=== PATIENT | female | born 1975 | race Caucasian/White ===

== ENCOUNTER → 2016-09-27 | Outpatient (CLI) | payer MEDICAID ==
[~2016-09-27] MED LIST: ALBUAER3 INH; CLIN1CAP5 PO; DICL75TA PO; GABA100C4 PO; HYDR12.56 PO; HYDR25TA35 PO; LURA80 PO; MECL-62 PO; MOTR200T4 PO; OMEP20TA PO; ROBA500T PO; SERT-129 PO; TRAZ50TA12 PO; WALKER WHEELS/F1 MIS; ZOFR4TAB PO
--- NOTE | 2016-09-27 10:59 | EKG ---
Date Performed: 09/27/2016 Time Performed: 10:26:18 PTAGE: 41 years EKG: Sinus rhythm NORMAL ECG PREVIOUS TRACING : 05/05/2011 19.59 No significant change from previous tracing noted. DOCTOR: Elmer Singh Interpretating Date/Time 09/27/2016 10:59:26
== END ==
LOC: HCAV 10:11
DX: F33.3 Major depressive disorder, recurrent, severe with psychotic symptoms (principal)
CPT/HCPCS: 93005

== ENCOUNTER 2016-12-31 21:13 | Inpatient (IN) | payer MEDICAID, OTHER ==
[~2016-12-31] VITALS: Ht 160 cm; Wt 73.0 kg
[~2016-12-31 21:13] MED LIST changes: -CLIN1CAP5 PO; -DICL75TA PO; -LURA80 PO; -MOTR200T4 PO; -OMEP20TA PO; -ROBA500T PO
[2016-12-31 21:16] VITALS: BP 135/81; PULSE 126; RESP 15; TEMP 100.2; O2SAT 97
[2016-12-31 22:19] VITALS: BP 116/74; PULSE 121; RESP 22; TEMP 100; O2SAT 96
[2016-12-31] MEDS ORDERED: SODIUM CHLOR 0.9% 1000 ML INJ 1,000 ML IV SCH (22:21)
[2016-12-31] MEDS ORDERED: PIPERACIL-TAZO 4.5 GM PREMIX 100 ML IV STA (22:28)
--- NOTE | 2016-12-31 22:28 | PD ---
HPI Chief Complaint: Abdominal Pain Time Seen by Provider: 22:23 Travel History International Travel<30 days: No Contact w/Intl Traveler<30days: No Traveled to known affect area: No History of Present Illness HPI Patient comes in complaining of sore throat, nausea, vomiting, and epigastric pain ongoing for 3 days. Patient states symptoms started with sore throat 3 days ago that she describes as a burning sensation in her throat. Patient reports the abdominal pain and vomiting began 2 days ago. Patient took Tylenol for this last dose was yesterday. Patient has been unable to eat anything secondary to the sore throat and vomiting. Patient states she's been tries to hydrate, but the back of her throat hurts when she swallows. Patient denies any radiation of pain. Denies any chest pain, shortness of breath, diarrhea, blood in vomit, or being around anyone else with similar. Patient reports she has had a cholecystectomy years ago. PFSH Past Medical History Anemia: Yes Asthma: Yes Anxiety: Yes Cancer: Yes (familial) Cardiovascular Problems: No Diminished Hearing: No Endocrine: No Fibromyalgia: Yes Gastrointestinal Disorders: Yes Genitourinary: No Hepatitis: Yes Immune Disorder: No Implanted Vascular Access Dvce: No Musculoskeletal: No Neurologic: No Psychiatric: No Reproductive: No Respiratory: Yes (ASTHMA) Immunizations Current: Yes ?: Not LMP: TUBAL Menopausal: Yes : 3 Para: 3 Tubal Ligation: Yes Past Surgical History Abdominal Surgery: Yes (GALLBLADDER REMOVAL) Cholecystectomy: Yes (10 YEARS AGO) Gynecologic Surgery: Yes (BREAST REDUCTION/LT BREAST CYST RESECTION) Other Surgery: Yes (LT. BREAST CYST RESECTION) Social History Alcohol Use: Yes (CASUAL) Tobacco Use: No Substance Use: No Allergies-Medications (Allergen,Severity, Reaction): Coded Allergies: Compazine (Verified Allergy, Severe, RESPIRATORY PROBLEMS, 12/31/16) Aspirin (Verified Allergy, Intermediate, RASH, 12/31/16) Latex (Verified Allergy, Intermediate, rash, 12/31/16) Reported Meds & Prescriptions Reported Meds & Active Scripts Active Zofran (Ondansetron HCl) 4 Mg Tab 4 Mg PO Q6HR PRN Walker with Front Wheels (Device) 1 Mis Mis 1 Ea .ROUTE DIRECTED Hydrochlorothiazide 12.5 Mg Tab 12.5 Mg PO BID Meclizine (Meclizine HCl) 25 Mg Tab 25 Mg PO TID PRN Reported Proair Hfa 8.5 GM Inh (Albuterol Sulfate) 90 Mcg/Act Aer 2 Puff INH Q4-6H PRN 108 mcg/actuation Trazodone (Trazodone HCl) 50 Mg Tab 50 Mg PO HS Sertraline (Sertraline HCl) 100 Mg Tab 100 Mg PO DAILY Hydralazine (Hydralazine HCl) 25 Mg Tab 25 Mg PO TID PRN Take with a meal Gabapentin 100 Mg Cap 400 Mg PO BID Review of Systems Except as stated in HPI: all other systems reviewed are Neg Physical Exam Narrative GENERAL: Well-developed, overly nourished, in no acute distress, and ill appearing, but nontoxic. SKIN: Focused skin assessment warm and dry. HEAD: Atraumatic. Normocephalic. EYES: Pupils equal and round. EOMI. No scleral icterus. No injection or drainage. ENT: No nasal bleeding or discharge. Mucous membranes pink and moist. Tympanic membranes pearly metzger bilaterally. Posterior pharynx mild erythematous without exudate. Uvula is midline. Patient is able swallow own saliva and is talking in full sentences. NECK: Trachea midline. No cervical lymphadenopathy. Supple. No nuclear rigidity. CARDIOVASCULAR: Regular rate and rhythm. No murmur appreciated. RESPIRATORY: No accessory muscle use. No respiratory distress. Clear to auscultation. Breath sounds equal bilaterally. GASTROINTESTINAL: Abdomen soft, nondistended. Hepatic and splenic margins not palpable. Normal bowel sounds 4. No pulsatile mass. Patient works concerns palpation primarily epigastric, left upper quadrant, and left lower quadrant abdomen. MUSCULOSKELETAL: No obvious deformities. No clubbing. No cyanosis. No edema. Full range of motion. NEUROLOGICAL: Awake and alert. No obvious cranial nerve deficits. Motor grossly within normal limits. Normal speech. PSYCHIATRIC: Appropriate mood and affect; insight and judgment normal. Data Data Last Documented VS Vital Signs Date Time Temp Pulse Resp B/P Pulse Ox O2 Delivery O2 Flow Rate FiO2 12/31/16 22:19 100.0 121 22 116/74 96 Room Air Orders Complete Blood Count With Diff (12/31/16 22:21) Comprehensive Metabolic Panel (12/31/16 22:21) Lipase (12/31/16 22:21) Prothrombin Time / Inr (Pt) (12/31/16 22:21) Act Partial Throm Time (Ptt) (12/31/16 22:21) Urinalysis - C+S If Indicated (12/31/16 22:21) Iv Access Insert/Monitor (12/31/16 22:21) Ecg Monitoring (12/31/16 22:21) Oximetry (12/31/16 22:21) Ondansetron Inj (Zofran Inj) (12/31/16 22:30) Sodium Chlor 0.9% 1000 Ml Inj (Ns 1000 M (12/31/16 22:21) Sodium Chloride 0.9% Flush (Ns Flush) (12/31/16 22:30) Electrocardiogram (12/31/16 22:21) Ed Urine Pregnancytest Poc (12/31/16 22:) Influenzae A/B Antigen (12/31/16 22:21) Group A Rapid Strep Screen (12/31/16 22:21) Chest, Single Ap (12/31/16 ) Acetaminophen (Tylenol) (12/31/16 22:30) Ct Abd/Pel W/O Iv Contrast (12/31/16 22:21) Lactic Acid Sepsis Protocol (12/31/16 22:28) Blood Culture (12/31/16 22:28) Sodium Chlor 0.9% 1000 Ml Inj (Ns 1000 M (12/31/16 22:30) Piperacil-Tazo 4.5 Gm Premix (Zosyn 4.5 (12/31/16 22:28) MDM Medical Decision Making Medical Screen Exam Complete: Yes Emergency Medical Condition: Yes Differential Diagnosis Sepsis, pancreatitis, diverticulitis, influenza, ileus, pneumonia, strep pharyngitis, electrolyte abnormality, dehydration, other Narrative Course Patient was seen and examined. Initial laboratory and radiological studies were ordered. Patient's given IV fluids, Zofran for nausea, given a dose of Zosyn. Patient was signed out to Dr. Hines, please see his documentation for final diagnosis and disposition. Angel Baig Dec 31, 2016 22:28
[2016-12-31] MEDS ORDERED: SODIUM CHLOR 0.9% 1000 ML INJ 1,000 ML IV ONE (22:30)
[2016-12-31] MEDS ORDERED: SODIUM CHLORIDE 0.9% FLUSH 10 ML FLUSH IV FLUSH PRN (22:30)
[2016-12-31] MEDS ORDERED: ONDANSETRON HCL 4 MG/2 ML VIAL IVP ONE (22:30)
[2016-12-31] MEDS ORDERED: ACETAMINOPHEN 325 MG TAB PO ONE (22:30)
[2016-12-31 22:51] VITALS: O2SAT 98
--- NOTE | 2016-12-31 23:02 | RADRPT ---
EXAM DATE/TIME: 12/31/2016 22:22 [facility] COMPARISON: No previous studies available for comparison. INDICATIONS : Chest pain. MEDICAL HISTORY : None. SURGICAL HISTORY : None. ENCOUNTER: Initial ACUITY: 2 days PAIN SCORE: 5/10 LOCATION: Right upper chest FINDINGS: A single view of the chest demonstrates the lungs to be symmetrically aerated without evidence of mas s, infiltrate or effusion. The cardiomediastinal contours are unremarkable. Osseous structures are intact. CONCLUSION: No acute disease. Vidal Fritz MD on December 31, 2016 at 23:00 Board Certified Radiologist. This report was verified electronically.
[2016-12-31 23:12] LABS: AUTOMATED NEUTROPHIL # 20.4 TH/MM3 (1.8-7.7); BASOPHIL # 0.1 TH/MM3 (0-0.2); BASOPHIL % 0.3 % (0.0-2.0); HEMATOCRIT 35.4 % (35.0-46.0); LYMPH % 4.4 % (9.0-44.0); MEAN CELL VOLUME 80.6 FL (80.0-100.0); MEAN CORPUSCULAR HEMOGLOBIN 27.9 PG (27.0-34.0); MEAN CORPUSCULAR HGB CONC 34.7 % (32.0-36.0); MONO % 4.3 % (0.0-8.0); PLATELET COUNT 374 TH/MM3 (150-450); RED BLOOD COUNT 4.39 MIL/MM3 (4.00-5.30); RED CELL DISTRIBUTION WIDTH 14.1 % (11.6-17.2); WHITE BLOOD COUNT 22.4 TH/MM3 (4.0-11.0)
[2016-12-31 23:16] LABS: HEMO FLAGS AUTO DIFF
[2016-12-31 23:22] LABS: ANION GAP 11 MEQ/L (5-15); AST (GOT) 27 U/L (15-37); BICARBONATE 23.9 MEQ/L (21.0-32.0); BLOOD UREA NITROGEN 9 MG/DL (7-18); CHLORIDE 101 MEQ/L (98-107); GLOMERULAR FILTRATION RATE 77 ML/MIN (>89); POTASSIUM 3.7 MEQ/L (3.5-5.1); SODIUM (NA) 136 MEQ/L (136-145)
[2016-12-31 23:26] LABS: APTT (PATIENT) 29.9 SEC (24.3-30.1); INTERNATIONAL NORMALIZED RATIO 1.1 RATIO; PROTHROMBIN TIME - PATIENT 12.4 SEC (9.8-11.6)
[2016-12-31 23:28] LABS: ALKALINE PHOSPHATASE 102 U/L (45-117); ALT (GPT) 32 U/L (10-53); TOTAL BILIRUBIN ADULT 0.9 MG/DL (0.2-1.0)
[2016-12-31] MEDS ORDERED: MORPHINE SULFATE 4 MG/ML INJ IV PUSH ONE (23:30)
[2016-12-31] MEDS ORDERED: diphenhydrAMINE HCL 50 MG/ML VIAL IV PUSH ONE (23:30)
[2016-12-31 23:33] VITALS: BP 123/69; PULSE 118; RESP 22; O2SAT 96
[2016-12-31 23:45] LABS: BLOOD, URINE SMALL (NEG); COMMENT (UR) CULT NOT INDICATED; CULTURE IF INDICATED CULT NOT INDICATED; GLUCOSE,URINE NEG (NEG); KETONE, URINE 40 mg/dL (NEG); NITRITE,URINE NEG (NEG); PH, URINE 6.5 (5.0-8.5); SQUAMOUS EPITHELIAL CELL URINE 1 /hpf (0-5); URINE COLOR YELLOW (YELLW/STRAW)
--- NOTE | 2016-12-31 23:57 | RADRPT ---
EXAM DATE/TIME: 12/31/2016 23:39 [facility] COMPARISON: CT ABDOMEN & PELVIS W/O CONTRAST, August 06, 2016, 18:52. INDICATIONS : Mid abdominal pain for two days. ORAL CONTRAST: No oral contrast ingested. RADIATION DOSE: 7.86 CTDIvol (mGy) MEDICAL HISTORY : None SURGICAL HISTORY : Cholecystectomy. ENCOUNTER: Initial ACUITY: 2 days PAIN SCALE: 5/10 LOCATION: middle abdomen TECHNIQUE: Volumetric scanning of the abdomen and pelvis was performed. Using automated exposure control and ad justment of the mA and/or kV according to patient size, radiation dose was kept as low as reasonably achievable to obtain optimal diagnostic quality images. FINDINGS: Examination of the lung bases demonstrates no abnormality. No pleural fluid is identified. No pulmona ry nodules are present. A small hiatal hernia is present. The liver and spleen are normal in size and no focal defects are identified. The gallbladder is absent. The pancreas demonstrates normal contour without evidence of mass or ductal dilatation. The adrenal glands and kidneys appear normal bilatera lly. No hydronephrosis or mass lesions are identified. Examination of the pelvis demonstrates no evidence of free fluid or pelvic mass. No abnormally enlarg ed inguinal or retroperitoneal lymph nodes are present. The bladder is unremarkable. Examination of t he right lower quadrant demonstrates no abnormality. The appendix is identified and appears normal. CONCLUSION: 1. No evidence of acute abdominal or pelvic process. No masses are identified. 2. Small hiatal hernia Candido Flores MD on December 31, 2016 at 23:53 Board Certified Radiologist. This report was verified electronically.
[2017-01-01] VITALS (8 sets, daily range): BP systolic 96–127; BP diastolic 60–78; PULSE 85–112; RESP 16–20; TEMP 97.3–99.7; O2SAT 96–98
[2017-01-01] MEDS ORDERED: SODIUM CHLOR 0.9% 1000 ML INJ 1,000 ML IV ONE (00:15)
[2017-01-01] MEDS ORDERED: KETOROLAC TROMETHAMINE 30 MG/ML (IVP) VIAL IV PUSH ONE (00:30)
[2017-01-01 00:32] LABS: BANDS 12 % (0-6); METAMYELOCYTES 1 % (0-1); NEUTROPHIL # MANUAL DIFF 20.6 TH/MM3 (1.8-7.7); POLYS (SEG NEUTROPHILS) 79 % (16-70); WBC DIFF SAMPLE 100
[2017-01-01 00:33] LABS: PLATELET ESTIMATE SMEAR NORMAL (NORMAL); PLATELET MORPHOLOGY NORMAL (NORMAL); SCAN/DIFF FINAL DIFF MANUAL
[2017-01-01] MEDS ORDERED: CLINDAMYCIN INJ 600 MG in SODIUM CHLORIDE 0.9% INJ 100 ML IV ONE (01:00)
--- NOTE | 2017-01-01 01:05 | PD ---
Data Data Last Documented VS Vital Signs Date Time Temp Pulse Resp B/P Pulse Ox O2 Delivery O2 Flow Rate FiO2 01/01/17 00:56 98.7 102 16 98 Room Air 01/01/17 00:03 127/78 Orders Complete Blood Count With Diff (12/31/16 22:21) Comprehensive Metabolic Panel (12/31/16 22:21) Lipase (12/31/16 22:21) Prothrombin Time / Inr (Pt) (12/31/16 22:21) Act Partial Throm Time (Ptt) (12/31/16 22:21) Urinalysis - C+S If Indicated (12/31/16 22:21) Iv Access Insert/Monitor (12/31/16 22:21) Ecg Monitoring (12/31/16:) Oximetry (12/31/16 22:) Ondansetron Inj (Zofran Inj) (12/31/16 22:30) Sodium Chlor 0.9% 1000 Ml Inj (Ns 1000 M (12/31/16 22:21) Sodium Chloride 0.9% Flush (Ns Flush) (12/31/16 22:30) Electrocardiogram (12/31/16 22:21) Ed Urine Pregnancytest Poc (12/31/16 22:21) Influenzae A/B Antigen (12/31/16 22:21) Group A Rapid Strep Screen (12/31/16 22:21) Chest, Single Ap (12/31/16 ) Acetaminophen (Tylenol) (12/31/16 22:30) Ct Abd/Pel W/O Iv Contrast (12/31/16 22:21) Lactic Acid Sepsis Protocol (12/31/16 22:28) Blood Culture (12/31/16 22:28) Sodium Chlor 0.9% 1000 Ml Inj (Ns 1000 M (12/31/16 22:30) Piperacil-Tazo 4.5 Gm Premix (Zosyn 4.5 (12/31/16 22:28) Diphenhydramine Inj (Benadryl Inj) (12/31/16 23:30) Morphine Inj (Morphine Inj) (12/31/16 23:30) Sodium Chlor 0.9% 1000 Ml Inj (Ns 1000 M (01/01/17 00:15) Ketorolac Inj (Toradol Inj) (01/01/17 00:30) Clindamycin Inj (Cleocin Inj) (01/01/17 01:00) Labs Laboratory Tests Test 12/31/16 12/31/16 12/31/16 22:14 22:30 23:25 Prothrombin Time 12.4 SEC Prothromb Time International 1.1 RATIO Ratio Activated Partial 29.9 SEC Thromboplast Time Sodium Level 136 MEQ/L Potassium Level 3.7 MEQ/L Chloride Level 101 MEQ/L Carbon Dioxide Level 23.9 MEQ/L Anion Gap 11 MEQ/L Blood Urea Nitrogen 9 MG/DL Creatinine 0.82 MG/DL Estimat Glomerular Filtration 77 ML/MIN Rate Random Glucose 110 MG/DL Calcium Level 8.9 MG/DL Total Bilirubin 0.9 MG/DL Aspartate Amino Transf 27 U/L (AST/SGOT) Alanine Aminotransferase 32 U/L (ALT/SGPT) Alkaline Phosphatase 102 U/L Total Protein 7.9 GM/DL Albumin 3.9 GM/DL Lipase 98 U/L White Blood Count 22.4 TH/MM3 Red Blood Count 4.39 MIL/MM3 Hemoglobin 12.3 GM/DL Hematocrit 35.4 % Mean Corpuscular Volume 80.6 FL Mean Corpuscular Hemoglobin 27.9 PG Mean Corpuscular Hemoglobin 34.7 % Concent Red Cell Distribution Width 14.1 % Platelet Count 374 TH/MM3 Mean Platelet Volume 7.7 FL Neutrophils (%) (Auto) 91.0 % Lymphocytes (%) (Auto) 4.4 % Monocytes (%) (Auto) 4.3 % Eosinophils (%) (Auto) 0.0 % Basophils (%) (Auto) 0.3 % Neutrophils # (Auto) 20.4 TH/MM3 Lymphocytes # (Auto) 1.0 TH/MM3 Monocytes # (Auto) 1.0 TH/MM3 Eosinophils # (Auto) 0.0 TH/MM3 Basophils # (Auto) 0.1 TH/MM3 CBC Comment AUTO DIFF Differential Total Cells 100 Counted Neutrophils % (Manual) 79 % Band Neutrophils % 12 % Lymphocytes % 3 % Monocytes % 5 % Neutrophils # (Manual) 20.6 TH/MM3 Metamyelocytes 1 % Differential Comment FINAL DIFF MANUAL Platelet Estimate NORMAL Platelet Morphology Comment NORMAL Lactic Acid Level 0.5 mmol/L Urine Color YELLOW Urine Turbidity CLEAR Urine pH 6.5 Urine Specific [place] 1.009 Urine Protein NEG mg/dL Urine Glucose (UA) NEG mg/dL Urine Ketones 40 mg/dL Urine Occult Blood SMALL Urine Nitrite NEG Urine Bilirubin NEG Urine Urobilinogen LESS THAN 2.0 MG/DL Urine Leukocyte Esterase NEG Urine RBC 12 /hpf Urine WBC 2 /hpf Urine Squamous Epithelial 1 /hpf Cells Microscopic Urinalysis Comment CULT NOT INDICATED MDM Supervised Visit with SUDARSHAN: Yes Narrative Course I, Dr. Hines, have reviewed the advance practice practitioner's documentation and am in agreement, met with the patient face to face, made the diagnosis, and the medical decision making was done by me. See his note for further details. Briefly this is a 41-year-old female who is here for evaluation of sore throat, nausea, vomiting, epigastric abdominal pain for 3 days. Patient also has a fever and is febrile here in the emergency department. She has moderate diffuse abdominal tenderness without peritoneal signs. Pharynx is erythematous. Uvula is midline. No hoarseness. No drooling or stridor. CBC is remarkable for WBC 22.4 with 91% neutrophils, 12% band neutrophils, otherwise unremarkable. CMP is unremarkable. Lactic acid is 0.5. UA shows 40 ketones, small occult blood, not suggestive of UTI. Chest x-ray shows no acute disease. CT abdomen pelvis shows no evidence of acute abdominal or pelvic process, no masses are identified. Small hiatal hernia. Influenza is negative. Group A strep is positive. The patient was empirically started on Zosyn shortly after arrival to the emergency Department, however shortly after this medication was started she began to have diffuse itching. She did not have an anaphylactic reaction. She was given a dose of Benadryl with resolution of the symptoms. She was given 2 L of normal saline IV as well as Tylenol orally and her heart rate only slightly improved from 120s to 1 teens. She was written for a third liter of normal saline IV. She was given a dose of clindamycin. There are no signs or symptoms of peritonsillar abscess. She does meet sepsis criteria and will be admitted for further treatment and evaluation of sepsis and strep pharyngitis. Case discussed with hospitalist Dr. Raman who will admit the patient to her service. Diagnosis Primary Impression: Sepsis Qualified Code: A40.0 - Sepsis due to group A Streptococcus Additional Impression: Strep pharyngitis Admitting Information Admitting Physician Requests: Admit Mark Hines MD Jan 01, 2017 01:04
[2017-01-01] MEDS ORDERED: ACETAMINOPHEN/HYDROcodone 325 MG/5 MG TAB PO PRN (01:45)
[2017-01-01] MEDS ORDERED: BISACODYL 10 MG SUPP RECTAL PRN (01:45)
[2017-01-01] MEDS ORDERED: MORPHINE SULFATE 4 MG/ML INJ IV PRN (01:45)
[2017-01-01] MEDS ORDERED: SODIUM CHLORIDE 0.9% FLUSH 10 ML FLUSH IV FLUSH PRN (01:45)
[2017-01-01] MEDS ORDERED: ONDANSETRON HCL 4 MG/2 ML VIAL IVP PRN (01:45)
[2017-01-01] MEDS ORDERED: ACETAMINOPHEN 325 MG TAB PO PRN (01:45)
[2017-01-01] MEDS: SODIUM CHLOR 0.9% 1000 ML INJ 1,000 ML IV SCH ×3 (03:23→21:37)
[2017-01-01] MEDS ORDERED: BENZOCAINE-MENTHOL (SUGAR FREE) 15 MG-3.6 MG LOZENGE BUCCAL PRN (04:00)
--- NOTE | 2017-01-01 04:06 | HHI.HP ---
[facility] Anish Andre M.D. Admission Diagnosis sepsis, strep pharyngitis Diagnoses: (1) Sepsis Diagnosis: Principal (2) Strep pharyngitis Diagnosis: Principal (3) Dehydration Diagnosis: Principal Travel History International Travel<30 Days: No Contact w/Intl Traveler <30 Da: No Traveled to Known Affected Are: No History of Present Illness This is a 41-year-old female with a PMH of Anxiety who presented to the ER with complaints of generalized weakness, sore throat, nausea, vomiting and abdominal pain x3 days. Denies fever, chills or sick contacts. States symptoms have been progressively worse x2 days, minimal relief w/ Tylenol. On arrival, BP 135 /81, HR 126, O2 sat 97% on RA, Temp 100.2. WBC 22.4, 12% bands. Chemistry unremarkable except for GFR 77. INR 1.1. UA negative for UTI. Throat positive for Strep. CXR with no acute findings. CT Abd/Pelvis negative for acute findings. S/p IVF, Blood Cultures, and Zosyn in ER. While Zosyn infusing , pt developed rash, Zosyn d/c'd, given Benadryl and switched to Clinda IV. Review of Systems Except as stated in HPI: all other systems reviewed are Neg ROS: 14 point review of systems otherwise negative. Past Family Social History Past Medical History PMH: Anxiety Past Surgical History PAST SURGICAL HISTORY: Cholecystectomy, Breast Reduction, Left Breast Cyst Resection Allergies: Coded Allergies: Compazine (Verified Allergy, Severe, RESPIRATORY PROBLEMS, 12/31/16) Aspirin (Verified Allergy, Intermediate, RASH, 12/31/16) Latex (Verified Allergy, Intermediate, rash, 12/31/16) Zosyn (Verified Allergy, Intermediate, itching, 12/31/16) Contrast Media (Verified Allergy, Unknown, 12/31/16) Family History PAST FAMILY HISTORY: Reviewed. No h/o DM or CAD Social History PAST SOCIAL HISTORY: Occasional alcohol. Negative for tobacco or drugs. Physical Exam Vital Signs Vital Signs Date Time Temp Pulse Resp B/P Pulse Ox O2 Delivery O2 Flow Rate FiO2 01/01/17 00:56 98.7 102 16 98 Room Air 01/01/17 00:03 99.7 112 18 127/78 98 Room Air 12/31/16 23:33 118 22 123/69 96 Room Air 12/31/16 22:51 98 Room Air 12/31/16 22:19 100.0 121 22 116/74 96 Room Air 12/31/16 21:16 100.2 126 15 135/81 97 Room Air Physical Exam PE: GENERAL: Middle-aged female in no acute distress, however appears to feel unwell. HEENT: PERRLA, EOMI. No scleral icterus or conjunctival pallor. No lid lag or facial droop. +pharyngeal erythema, no exudates noted. CARDIOVASCULAR: Regular rate and rhythm. No obvious murmurs to auscultation. No chest tenderness to palpation. RESPIRATORY: No obvious rhonchi or wheezing. Clear to auscultation. Breath sounds equal bilaterally. GASTROINTESTINAL: Abdomen soft, non-tender, nondistended. BS normal. MUSCULOSKELETAL: Extremities without clubbing, cyanosis, or edema. No obvious deformities. NEUROLOGICAL: Awake, alert and oriented x4. No focal neurologic deficits. Moving both upper and lower extremities spontaneously. Laboratory Laboratory Tests Test 12/31/16 12/31/16 12/31/16 22:14 22:30 23:25 Prothrombin Time 12.4 Prothromb Time International 1.1 Ratio Activated Partial 29.9 Thromboplast Time Sodium Level 136 Potassium Level 3.7 Chloride Level 101 Carbon Dioxide Level 23.9 Anion Gap 11 Blood Urea Nitrogen 9 Creatinine 0.82 Estimat Glomerular Filtration 77 Rate Random Glucose 110 Calcium Level 8.9 Total Bilirubin 0.9 Aspartate Amino Transf 27 (AST/SGOT) Alanine Aminotransferase 32 (ALT/SGPT) Alkaline Phosphatase 102 Total Protein 7.9 Albumin 3.9 Lipase 98 White Blood Count 22.4 Red Blood Count 4.39 Hemoglobin 12.3 Hematocrit 35.4 Mean Corpuscular Volume 80.6 Mean Corpuscular Hemoglobin 27.9 Mean Corpuscular Hemoglobin 34.7 Concent Red Cell Distribution Width 14.1 Platelet Count 374 Mean Platelet Volume 7.7 Neutrophils (%) (Auto) 91.0 Lymphocytes (%) (Auto) 4.4 Monocytes (%) (Auto) 4.3 Eosinophils (%) (Auto) 0.0 Basophils (%) (Auto) 0.3 Neutrophils # (Auto) 20.4 Lymphocytes # (Auto) 1.0 Monocytes # (Auto) 1.0 Eosinophils # (Auto) 0.0 Basophils # (Auto) 0.1 CBC Comment AUTO DIFF Differential Total Cells 100 Counted Neutrophils % (Manual) 79 Band Neutrophils % 12 Lymphocytes % 3 Monocytes % 5 Neutrophils # (Manual) 20.6 Metamyelocytes 1 Differential Comment FINAL DIFF MANUAL Platelet Estimate NORMAL Platelet Morphology Comment NORMAL Lactic Acid Level 0.5 Urine Color YELLOW Urine Turbidity CLEAR Urine pH 6.5 Urine Specific [place] 1.009 Urine Protein NEG Urine Glucose (UA) NEG Urine Ketones 40 Urine Occult Blood SMALL Urine Nitrite NEG Urine Bilirubin NEG Urine Urobilinogen LESS THAN 2.0 Urine Leukocyte Esterase NEG Urine RBC 12 Urine WBC 2 Urine Squamous Epithelial 1 Cells Microscopic Urinalysis Comment CULT NOT INDICATED Date/Time Procedure Status Source Growth 12/31/16 23:30 Influenza Types A,B Antigen (MARILYN) - Final Complete Nasal Washing NEGATIVE FOR FLU A AND B ANTIGEN.... 12/31/16 22:45 Aerobic Blood Culture Received Blood Peripheral Pending 12/31/16 22:45 Anaerobic Blood Culture Received Blood Peripheral Pending 12/31/16 22:14 Group A Streptococcus Screen (MARILYN) - Final Complete Throat Pos For Grp A Strep Antigen Result Diagram: 12/31/16221312/31/162213 Assessment and Plan Problem List: (1) Sepsis ICD Code: A41.9 Status: Acute (2) Strep pharyngitis ICD Code: J02.0 Status: Acute (3) Dehydration ICD Code: E86.0 Status: Acute Assessment and Plan A/P: 1. Sepsis: Temp 100.2, WBC 22.4, HR 136, Source-+Strep, s/p IVF, Blood Cultures and IV Abx in ER. Follow up cultures, continue IVF and IV Abx- initially given Zosyn however developed rash and switched to Clinda IV. 2. Strep Pharyngitis: c/o sore throat x3 days, painful swallowing, Cepacol lozenges, continue w/ treatment as above. 3. Dehydration: GFR 77. Secondary to above. IVF for hydration, repeat labs in am. 4. DVT Prophylaxis: SCD/Teds. 5. Social work for d/c planning as needed. 6. Case discussed w/ ER physician at length. Physician Certification 2 Midnight Certification Type: Admission for Inpatient Services Order for Inpatient Services The services are ordered in accordance with Medicare regulations or non- Medicare payer requirements, as applicable. In the case of services not specified as inpatient-only, they are appropriately provided as inpatient services in accordance with the 2-midnight benchmark. Estimated LOS (days): 2 days is the estimated time the patient will need to remain in the hospital, assuming treatment plan goals are met and no additional complications. Post-Hospital Plan: Home Problem Qualifiers (1) Sepsis: Qualified Code: A40.0 - Sepsis due to group A Streptococcus Bree Raman MD Jan 01, 2017 04:06
[2017-01-01] MEDS: SODIUM CHLORIDE 0.9% FLUSH 10 ML FLUSH IV FLUSH SCH ×2 (09:00→21:00)
[2017-01-01] MEDS: CLINDAMYCIN INJ 900 MG in SODIUM CHLORIDE 0.9% INJ 100 ML IV SCH ×2 (09:03→16:54)
[2017-01-01] MEDS ORDERED: DEXAMETHASONE SOD PHOS 4 MG/ML VIAL IV PUSH ONE (11:00)
--- NOTE | 2017-01-01 11:09 | HHI.PR ---
Subjective Remarks Follow-up for sepsis and pharyngitis. The patient continues to complain of sore throat. She states that she had chills and sweating overnight since admission. Her rash after receiving Zosyn has resolved. She has some epigastric abdominal discomfort, occurred after vomiting yesterday. She denies any further nausea, and has been tolerating liquids. Objective Vitals Vital Signs Date Time Temp Pulse Resp B/P Pulse Ox O2 Delivery O2 Flow Rate FiO2 01/01/17 08:00 97.3 90 16 96/60 96 01/01/17 06:00 99 01/01/17 02:45 97.6 102 20 105/68 97 01/01/17 00:56 98.7 102 16 98 Room Air 01/01/17 00:03 99.7 112 18 127/78 98 Room Air 12/31/16 23:33 118 22 123/69 96 Room Air 12/31/16 22:51 98 Room Air 12/31/16 22:19 100.0 121 22 116/74 96 Room Air 12/31/16 21:16 100.2 126 15 135/81 97 Room Air I/O 12/31/16 12/31/16 12/31/16 01/01/17 01/01/17 01/01/17 07:00 15:00 23:00 07:00 15:00 23:00 Intake Total 2332 ml Balance 2332 ml Intake Oral 120 ml IV Total 2212 ml # Voids 2 # Bowel Movements 0 Result Diagram: 12/31/16 2214 12/31/16 2214 Imaging Last Impressions Abdomen/Pelvis CT 12/31/16 2221 Signed Impressions: Service Date/Time: Saturday, December 31, 2016 23:39 - CONCLUSION: 1. No evidence of acute abdominal or pelvic process. No masses are identified. 2. Small hiatal hernia Candido Flores MD Chest X-Ray 12/31/16 0000 Signed Impressions: Service Date/Time: Saturday, December 31, 2016 22:22 - CONCLUSION: No acute disease. Vidal Fritz MD Objective Remarks GENERAL: Well-developed well-nourished. In no acute distress. SKIN: Warm and dry. No lesions noted. HEENT: Normocephalic. Pupils equal and round. Oropharynx patent with some mild swelling and edema. Tender anterior cervical lymphadenopathy. CARDIOVASCULAR: Regular rate and rhythm. No murmur appreciated. RESPIRATORY: No accessory muscle use. Clear to auscultation. Breath sounds equal bilaterally. GASTROINTESTINAL: Abdomen soft, mild epigastric TTP, nondistended. Bowel sounds x4. MUSCULOSKELETAL: No obvious deformities. No clubbing or cyanosis. No edema. NEUROLOGICAL: Awake and alert. No focal neurological deficits. Moves upper and lower extremities spontaneously. Normal speech. PSYCHIATRIC: Appropriate mood and affect; insight and judgment normal. A/P Problem List: (1) Sepsis ICD Code: A41.9 Status: Acute (2) Strep pharyngitis ICD Code: J02.0 Status: Acute (3) Dehydration ICD Code: E86.0 Status: Acute Assessment and Plan 41-year-old female with a PMH of Anxiety who presented with complaints of generalized weakness, sore throat, nausea, vomiting and abdominal pain x3 days Sepsis: Tmax 100.2, WBC 22.4, tachycardic, Source-+Strep. Lactic acid within normal limits. Blood cultures pending. Continue IV clindamycin (adverse reaction to Zosyn). Hypotension today, BP 96/60, possible severe sepsis, IVF bolus. Strep Pharyngitis: c/o sore throat x3 days, painful swallowing. Cepacol lozenges, soft diet. Continue w/ treatment as above. IV Decadron 1 for swelling. Nausea and vomiting with associated epigastric discomfort: GFR 77. Secondary to infection as above. IVF for hydration, antiemetics, repeat labs in am. Start IV Protonix with epigastric discomfort. DVT Prophylaxis: SCD/Teds. Problem Qualifiers (1) Sepsis: Qualified Code: A40.0 - Sepsis due to group A Streptococcus Agus Auguste Jan 01, 2017 11:09
[2017-01-01] MEDS ORDERED: SODIUM CHLORID 0.9% 500 ML INJ 500 ML IV ONE (11:15)
[2017-01-01] MEDS: PANTOPRAZOLE SODIUM 40 MG VIAL IV PUSH SCH (12:04)
[2017-01-01 12:41] LABS: AUTOMATED NEUTROPHIL # 11.3 TH/MM3 (1.8-7.7); BASOPHIL # 0.1 TH/MM3 (0-0.2); BASOPHIL % 0.4 % (0.0-2.0); EOSINOPHIL # 0.1 TH/MM3 (0-0.4); EOSINOPHIL % 0.5 % (0.0-4.0); HEMATOCRIT 34.1 % (35.0-46.0); HEMO FLAGS DIFF FINAL; LYMPH % 9.9 % (9.0-44.0); LYMPHOCYTE # 1.4 TH/MM3 (1.0-4.8); MEAN CELL VOLUME 83.8 FL (80.0-100.0); MEAN CORPUSCULAR HEMOGLOBIN 28.2 PG (27.0-34.0); MEAN CORPUSCULAR HGB CONC 33.6 % (32.0-36.0); MONO % 8.5 % (0.0-8.0); NEUT % 80.7 % (16.0-70.0); PLATELET COUNT 306 TH/MM3 (150-450); RED BLOOD COUNT 4.07 MIL/MM3 (4.00-5.30); RED CELL DISTRIBUTION WIDTH 14.6 % (11.6-17.2)
--- NOTE | 2017-01-01 14:10 | EKG ---
Date Performed: 12/31/2016 Time Performed: 23:14:07 PTAGE: 41 years EKG: SINUS TACHYCARDIA Compared to previous tracing, heart rate is faster. ABNORMAL RHYTHM ECG PREVIOUS TRACING : 09/27/2016 10.26 DOCTOR: Cesar Forrest Interpretating Date/Time 01/01/2017 14:09:11
[2017-01-02] VITALS: BP 105/64; PULSE 69; RESP 18; TEMP 98; O2SAT 98
[2017-01-02] MEDS: CLINDAMYCIN INJ 900 MG in SODIUM CHLORIDE 0.9% INJ 100 ML IV SCH ×2 (00:45→07:46)
[2017-01-02 04:00] VITALS: BP 119/77; PULSE 72; RESP 18; TEMP 97.4; O2SAT 98
[2017-01-02 05:26] LABS: AUTOMATED NEUTROPHIL # 11.9 TH/MM3 (1.8-7.7); BASOPHIL % 0.1 % (0.0-2.0); HEMATOCRIT 30.4 % (35.0-46.0); HEMO FLAGS DIFF FINAL; LYMPH % 10.3 % (9.0-44.0); LYMPHOCYTE # 1.4 TH/MM3 (1.0-4.8); MEAN CELL VOLUME 81.9 FL (80.0-100.0); MEAN CORPUSCULAR HEMOGLOBIN 28.4 PG (27.0-34.0); MEAN CORPUSCULAR HGB CONC 34.7 % (32.0-36.0); MONO % 4.1 % (0.0-8.0); NEUT % 85.5 % (16.0-70.0); PLATELET COUNT 314 TH/MM3 (150-450); RED BLOOD COUNT 3.71 MIL/MM3 (4.00-5.30); RED CELL DISTRIBUTION WIDTH 14.1 % (11.6-17.2); WHITE BLOOD COUNT 13.9 TH/MM3 (4.0-11.0)
[2017-01-02 06:01] LABS: ALKALINE PHOSPHATASE 93 U/L (45-117); ALT (GPT) 38 U/L (10-53); ANION GAP 9 MEQ/L (5-15); AST (GOT) 24 U/L (15-37); BICARBONATE 23.3 MEQ/L (21.0-32.0); BLOOD UREA NITROGEN 10 MG/DL (7-18); CHLORIDE 109 MEQ/L (98-107); GLOMERULAR FILTRATION RATE 77 ML/MIN (>89); POTASSIUM 3.5 MEQ/L (3.5-5.1); SODIUM (NA) 141 MEQ/L (136-145); TOTAL BILIRUBIN ADULT 0.3 MG/DL (0.2-1.0)
[2017-01-02] MEDS: SODIUM CHLOR 0.9% 1000 ML INJ 1,000 ML IV SCH (07:46)
[2017-01-02] MEDS: SODIUM CHLORIDE 0.9% FLUSH 10 ML FLUSH IV FLUSH SCH (07:46)
[2017-01-02 08:00] VITALS: BP 120/79; PULSE 69; RESP 16; TEMP 98; O2SAT 100
--- NOTE | 2017-01-02 10:49 | HHI.PR ---
Subjective Remarks Follow-up for sepsis and pharyngitis. The patient reports feeling much better today. No further fevers overnight. She is able to tolerate oral intake. Her throat pain improved, just feels scratchy. No nausea or vomiting. She feels stable for discharge. Objective Vitals Vital Signs Date Time Temp Pulse Resp B/P Pulse Ox O2 Delivery O2 Flow Rate FiO2 01/02/17 08:00 98.0 69 16 120/79 100 01/02/17 04:00 97.4 72 18 119/77 98 01/02/17 00:00 98.0 69 18 105/64 98 01/01/17 20:00 98.7 85 18 101/62 97 01/01/17 16:00 99.3 98 17 107/75 96 01/01/17 12:00 97.7 88 16 102/64 96 I/O 01/01/17 01/01/17 01/01/17 01/02/17 01/02/17 01/02/17 07:00 15:00 23:00 07:00 15:00 23:00 Intake Total 2332 ml 2223 ml 1014 ml 926 ml Balance 2332 ml 2223 ml 1014 ml 926 ml Intake Oral 120 ml 1080 ml 240 ml 120 ml IV Total 2212 ml 1143 ml 774 ml 806 ml # Voids 2 4 8 0 # Bowel Movements 0 0 0 0 Result Diagram: 01/02/17 0500 01/02/17 0500 Imaging Last Impressions Abdomen/Pelvis CT 12/31/16 2221 Signed Impressions: Service Date/Time: Saturday, December 31, 2016 23:39 - CONCLUSION: 1. No evidence of acute abdominal or pelvic process. No masses are identified. 2. Small hiatal hernia Candido Flores MD Chest X-Ray 12/31/16 0000 Signed Impressions: Service Date/Time: Saturday, December 31, 2016 22:22 - CONCLUSION: No acute disease. Vidal Fritz MD Objective Remarks GENERAL: Well-developed well-nourished middle aged female patient in [facility]. SKIN: Warm and dry. No lesions noted. HEENT: Normocephalic. Pupils equal and round. Oropharynx patent with some mild edema and tonsillar exudates. CARDIOVASCULAR: Regular rate and rhythm. No murmur appreciated. RESPIRATORY: No accessory muscle use. Clear to auscultation. Breath sounds equal bilaterally. GASTROINTESTINAL: Abdomen soft, nontender, nondistended. Bowel sounds x4. MUSCULOSKELETAL: No obvious deformities. No clubbing or cyanosis. No edema. NEUROLOGICAL: Awake and alert. No focal neurological deficits. Moves upper and lower extremities spontaneously. Normal speech. PSYCHIATRIC: Appropriate mood and affect; insight and judgment normal. Medications and IVs Current Medications Medications (Trade) Dose Ordered Sig/Haley Route Start Time Stop Time Status Last Admin Sodium Chloride 2 ml 2 ml UNSCH PRN IV FLUSH 12/31/16 22:30 Clindamycin Phosphate 900 mg/ Sodium Chloride 106 ml @ 212 mls/hr Q8H IV 01/01/17 09:00 01/02/17 07:46 (NS 1000 ml Inj) 1,000 ml @ 100 mls/hr Q10H IV 01/01/17 01:37 01/02/17 07:46 (NS Flush) 2 ml UNSCH PRN IV FLUSH 01/01/17 01:45 (NS Flush) 2 ml BID IV FLUSH 01/01/17 09:00 (Zofran Inj) 4 mg Q6H PRN IVP 01/01/17 01:45 01/01/17 09:10 (Dulcolax Supp) 10 mg DAILY PRN RECTAL 01/01/17 01:45 (Tylenol) 650 mg Q6H PRN PO 01/01/17 01:45 ([place] 5-325 Mg) 1 tab Q4H PRN PO 01/01/17 01:45 (Morphine Inj) 2 mg Q3H PRN IV 01/01/17 01:45 (Cepacol Extra Jett (Sugar Free)) 1 lozenge Q2HR PRN BUCCAL 01/01/17 04:00 01/01/17 13:11 (Protonix Inj) 40 mg Q24H IV PUSH 01/01/17 12:00 01/01/17 12:04 A/P Problem List: (1) Sepsis ICD Code: A41.9 Status: Acute (2) Strep pharyngitis ICD Code: J02.0 Status: Acute (3) Dehydration ICD Code: E86.0 Status: Acute Assessment and Plan 41-year-old female with a PMH of Anxiety who presented with complaints of generalized weakness, sore throat, nausea, vomiting and abdominal pain x3 days Sepsis: Tmax 100.2, WBC 22.4, tachycardic, Source-+Strep. Lactic acid within normal limits. Blood cultures pending. Continue IV clindamycin (adverse reaction to Zosyn). With hypotension, BP 96/60, possible severe sepsis, IVF bolus. Patient Improving, afebrile overnight, tachycardia resolved, WBC 13.9K. Strep Pharyngitis: c/o sore throat x3 days, painful swallowing. Cepacol lozenges, soft diet. Continue w/ treatment as above. IV Decadron 1 for swelling. Much improved, will discharge on po Clinda. Nausea and vomiting with associated epigastric discomfort: GFR 77. Secondary to infection as above. IVF for hydration, antiemetics, repeat labs in am. Given IV Protonix with epigastric discomfort. N/V improved. DVT Prophylaxis: SCD/Teds. Written by Estrella Roque, acting as scribe for Dr. Montana on 01/02/17 at 11: 45. Discharge Planning Discharge patient to home Condition on discharge: Improved Regular Diet as tolerated Ad Orly activity Rx written: Clinda 300mg q8h x8 days (10 days total) Follow-up with primary care physician Attending Statement This note was transcribed by scribe. I, Dr. Maryuri Montana personally performed the history, physical exam, and medical decision making; and confirmed the accuracy of the information in the transcribed note. Authenticated by Dr. Maryuri Montana on 01/02/17 at 12:11. Problem Qualifiers (1) Sepsis: Qualified Code: A40.0 - Sepsis due to group A Streptococcus Estrella Roque PA-C Jan 02, 2017 10:49 Maryuri Montana MD Jan 02, 2017 12:12
[2017-01-02] MEDS ORDERED: CLIN1CAP5 PO (11:49)
--- NOTE | 2017-01-02 11:51 | HHI.DCPOC ---
Discharge Care Plan Diagnosis: (1) Strep pharyngitis Goals to Promote Your Health * To prevent worsening of your condition and complications * To maintain your health at the optimal level Directions to Meet Your Goals Take your medications as prescribed Follow your dietary instruction Follow activity as directed Keep your appointments as scheduled Take your immunizations and boosters as scheduled If your symptoms worsen call your PCP, if no PCP go to Urgent Care Center or Emergency Room Smoking is Dangerous to Your Health. Avoid second hand smoke Call the 24-hour hour crisis hotline for domestic abuse at Estrella Roque PA-C Jan 02, 2017 11:51 am
[2017-01-02 12:00] VITALS: BP 122/80; PULSE 72; RESP 17; TEMP 97.8; O2SAT 100
[2017-01-02] MEDS: PANTOPRAZOLE SODIUM 40 MG VIAL IV PUSH SCH (12:06)
[2017-02-08] MEDS ORDERED: LURA80 PO (09:19)
[2017-02-08] MEDS ORDERED: OMEP20TA PO (09:22)
== END 2017-01-02 14:55 | disposition home or self-care (01) | DRG 872 ==
LOC: NEPC 21:13 → NEDA 01-01 01:13 → N07B 01-01 02:40
PROVIDERS: ADMIT Family Medicine; ATTEND Family Medicine
DX: A40.0 Sepsis due to streptococcus, group A (principal); K75.9 Inflammatory liver disease, unspecified; J02.0 Streptococcal pharyngitis; J45.909 Unspecified asthma, uncomplicated; F41.9 Anxiety disorder, unspecified; M79.7 Fibromyalgia; Z88.6 Allergy status to analgesic agent; Z91.040 Latex allergy status; E86.0 Dehydration; R11.2 Nausea with vomiting, unspecified; L27.0 Generalized skin eruption due to drugs and medicaments taken internally; T36.0X5A Adverse effect of penicillins, initial encounter; Y92.239 Unspecified place in hospital as the place of occurrence of the external cause
CPT/HCPCS: 71010; 74176; 80053; 81001; 83605; 83690; 84703; 85007; 85025; 85027; 85610; 85730; 87040; 87804; 87880; 93005; 96361; 96374; 96375; C9113; J1100; J1200; J1885; J2270; J2405; J2543; J7030; J7040

== ENCOUNTER 2017-02-07 08:49 | Emergency (ER) | payer OTHER ==
[~2017-02-07] VITALS: Ht 160 cm; Wt 70.0 kg
[~2017-02-07 08:49] MED LIST changes: +CLIN1CAP5 PO
--- NOTE | 2017-02-07 09:23 | PD ---
HPI Chief Complaint: Back/ Neck Pain or Injury Time Seen by Provider: 09:12 Travel History International Travel<30 days: No Contact w/Intl Traveler<30days: No Traveled to known affect area: No History of Present Illness HPI 41-year-old female with past medical history of fibromyalgia and chronic back pain presents to the emergency department with a 2 week history of low back pain radiating down the right leg. She reports the pain is generalized to the low back worse on the right side radiating down the right buttocks to the knee. She denies injury, fever, incontinence, or difficulty walking. She reports she's had similar episodes of pain in the past. She denies any other complaint at this time. PFSH Past Medical History Anemia: Yes Asthma: Yes Anxiety: Yes Cardiovascular Problems: No Fibromyalgia: Yes Gastrointestinal Disorders: Yes Hepatitis: Yes Immune Disorder: No Implanted Vascular Access Dvce: No Musculoskeletal: Yes (fibromyalgia) Neurologic: Yes (vertigo) Psychiatric: Yes Reproductive: No Immunizations Current: Yes ?: Not Menopausal: Yes : 3 Para: 3 Tubal Ligation: Yes Past Surgical History Abdominal Surgery: Yes (GALLBLADDER REMOVAL) Cholecystectomy: Yes (10 YEARS AGO) Gynecologic Surgery: Yes (BREAST REDUCTION/LT BREAST CYST RESECTION) Other Surgery: Yes (LT. BREAST CYST RESECTION) Social History Alcohol Use: Yes (CASUAL) Tobacco Use: No Substance Use: No Allergies-Medications (Allergen,Severity, Reaction): Coded Allergies: Compazine (Verified Allergy, Severe, RESPIRATORY PROBLEMS, 02/07/17) Aspirin (Verified Allergy, Intermediate, RASH, 02/07/17) Latex (Verified Allergy, Intermediate, rash, 02/07/17) Zosyn (Verified Allergy, Intermediate, itching, 02/07/17) Contrast Media (Verified Allergy, Unknown, 02/07/17) Oxycodone (Verified Allergy, Unknown, HIVES,SWELLING, 02/07/17) Reported Meds & Prescriptions Reported Meds & Active Scripts Active Robaxin (Methocarbamol) 500 Mg Tab 500 Mg PO TID PRN Motrin Ib (Ibuprofen) 200 Mg Tab 800 Mg PO Q8HR PRN Zofran (Ondansetron HCl) 4 Mg Tab 4 Mg PO Q6HR PRN Hydrochlorothiazide 12.5 Mg Tab 12.5 Mg PO BID Meclizine (Meclizine HCl) 25 Mg Tab 25 Mg PO TID PRN Reported Proair Hfa 8.5 GM Inh (Albuterol Sulfate) 90 Mcg/Act Aer 2 Puff INH Q4-6H PRN 108 mcg/actuation Trazodone (Trazodone HCl) 50 Mg Tab 50 Mg PO HS Sertraline (Sertraline HCl) 100 Mg Tab 100 Mg PO DAILY Hydralazine (Hydralazine HCl) 25 Mg Tab 25 Mg PO TID PRN Take with a meal Gabapentin 100 Mg Cap 400 Mg PO BID Review of Systems Except as stated in HPI: all other systems reviewed are Neg Physical Exam Narrative GENERAL: Well-nourished well-appearing female in no acute distress. SKIN: Warm and dry. HEAD: Atraumatic. Normocephalic. EYES: Pupils equal and round. No scleral icterus. No injection or drainage. ENT: No nasal bleeding or discharge. Mucous membranes pink and moist. NECK: Trachea midline. No JVD. CARDIOVASCULAR: Regular rate and rhythm. RESPIRATORY: No accessory muscle use. Clear to auscultation. Breath sounds equal bilaterally. GASTROINTESTINAL: Abdomen soft, non-tender, nondistended. Hepatic and splenic margins not palpable. MUSCULOSKELETAL: Extremities without clubbing, cyanosis, or edema. No obvious deformities. NEUROLOGICAL: Awake and alert. No obvious cranial nerve deficits. Motor grossly within normal limits. Five out of 5 muscle strength in the arms and legs. Normal speech. Normal sensation in lower extremities. 2+ reflexes in lower extremities. PSYCHIATRIC: Appropriate mood and affect; insight and judgment normal. MDM Medical Decision Making Medical Screen Exam Complete: Yes Emergency Medical Condition: No Differential Diagnosis Sciatica versus lumbar strain versus radiculopathy Narrative Course 41-year-old female presents emergency department with 2 week history of right- sided lower back pain radiating down the right buttocks. History and physical exam are consistent with sciatica. Patient reports similar episodes in the past. She denies incontinence or any ventilatory dysfunction. Treatment plan will include NSAIDs and muscle relaxers follow up with your primary doctor. Patient is in agreement to this plan. Patient reports no allergies to NSAIDs as as stated in the chart. Patient reports she routinely takes ibuprofen, Motrin, Naprosyn. Diagnosis Primary Impression: Sciatic leg pain Referrals: Primary Care Physician Patient Instructions: General Instructions, Sciatica (ED) Scripts Methocarbamol (Robaxin)500 Mg Our495 Mg PO TID PRN (MUSCLE SPASM) #12 TAB Ref 0 Prov:Dulce Knight 02/07/17 Ibuprofen (Motrin Ib)200 Mg [id number] Mg PO Q8HR PRN (PAIN SCALE 1 TO 5) #20 TAB Ref 0 Prov:Dulce Knight 02/07/17 Disposition: 01 DISCHARGE HOME Condition: Stable Dulce Knight February 07, 2017 09:23
[2017-02-07] MEDS ORDERED: MOTR200T4 PO (09:32)
[2017-02-07] MEDS ORDERED: ROBA500T PO (09:33)
[2017-02-08] MEDS ORDERED: LURA80 PO (09:19)
[2017-02-08] MEDS ORDERED: OMEP20TA PO (09:22)
== END 2017-02-07 09:55 | disposition home or self-care (01) ==
LOC: NEPK 08:49
DX: M54.41 Lumbago with sciatica, right side (principal); M79.604 Pain in right leg; M79.7 Fibromyalgia
CPT/HCPCS: 99283

== ENCOUNTER 2017-03-10 18:34 | Emergency (ER) | payer OTHER ==
[~2017-03-10] VITALS: Ht 160 cm; Wt 78.0 kg
[~2017-03-10 18:34] MED LIST changes: -CLIN1CAP5 PO; +LURA80 PO; +MOTR200T4 PO; +OMEP20TA PO; +ROBA500T PO; -WALKER WHEELS/F1 MIS
[2017-03-10 18:36] VITALS: BP 124/72; PULSE 82; RESP 17; TEMP 99.1; O2SAT 98
[2017-03-10] MEDS ORDERED: DICL75TA PO (19:15)
[2017-03-10] MEDS ORDERED: ROBA500T PO (19:15)
--- NOTE | 2017-03-10 19:18 | PD ---
HPI Chief Complaint: Back/ Neck Pain or Injury Time Seen by Provider: 19:15 Travel History International Travel<30 days: No Contact w/Intl Traveler<30days: No Traveled to known affect area: No History of Present Illness HPI 41 year-old female presents emergency Department with complaints of acute exacerbation of chronic back pain. She states that she is under the care of a pain management doctor due to chronic back pain. She has had epidural steroid blocks and cauterization. She takes Neurontin for pain. She states that over the last several weeks to months use had worsening pain. She has not seen her doctor recently regarding her worsening pain. She denies any acute bowel or bladder changes. No trauma. No numbness, tingling or weakness. She states the pain is up and down her back down into her right leg. She states that she's had this in the past but is more intense. She does not work. 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 PFSH Past Medical History Narrative Medical Vertigo, chronic back pain, depression, anxiety Anemia: Yes Asthma: Yes Anxiety: Yes Cardiovascular Problems: No Fibromyalgia: Yes Gastrointestinal Disorders: Yes Hepatitis: Yes Immune Disorder: No Implanted Vascular Access Dvce: No Musculoskeletal: Yes (fibromyalgia) Neurologic: Yes (vertigo) Psychiatric: Yes Reproductive: No Immunizations Current: Yes ?: Not LMP: 3 years ago; menopause Menopausal: Yes : 3 Para: 3 Tubal Ligation: Yes Past Surgical History Narrative Surgical Cholecystectomy, breast reduction Abdominal Surgery: Yes (GALLBLADDER REMOVAL) Cholecystectomy: Yes (10 YEARS AGO) Gynecologic Surgery: Yes (BREAST REDUCTION/LT BREAST CYST RESECTION) Other Surgery: Yes (LT. BREAST CYST RESECTION) Social History Alcohol Use: Yes (CASUAL) Tobacco Use: No Substance Use: No Allergies-Medications (Allergen,Severity, Reaction): Coded Allergies: Compazine (Verified Allergy, Severe, RESPIRATORY PROBLEMS, 03/10/17) Aspirin (Verified Allergy, Intermediate, RASH, 03/10/17) Latex (Verified Allergy, Intermediate, rash, 03/10/17) Zosyn (Verified Allergy, Intermediate, itching, 03/10/17) Contrast Media (Verified Allergy, Unknown, 03/10/17) Oxycodone (Verified Allergy, Unknown, HIVES,SWELLING, 03/10/17) Reported Meds & Prescriptions Reported Meds & Active Scripts Active Robaxin (Methocarbamol) 500 Mg Tab 500 Mg PO TID PRN Motrin Ib (Ibuprofen) 200 Mg Tab 800 Mg PO Q8HR PRN Zofran (Ondansetron HCl) 4 Mg Tab 4 Mg PO Q6HR PRN Hydrochlorothiazide 12.5 Mg Tab 12.5 Mg PO BID Meclizine (Meclizine HCl) 25 Mg Tab 25 Mg PO TID PRN Reported Omeprazole 20 Mg Tab 20 Mg PO DAILY Latuda (Lurasidone) 80 Mg Tab 80 Mg PO DAILY Proair Hfa 8.5 GM Inh (Albuterol Sulfate) 90 Mcg/Act Aer 2 Puff INH Q4-6H PRN 108 mcg/actuation Trazodone (Trazodone HCl) 50 Mg Tab 50 Mg PO HS Sertraline (Sertraline HCl) 100 Mg Tab 100 Mg PO DAILY Hydralazine (Hydralazine HCl) 25 Mg Tab 25 Mg PO TID PRN Take with a meal Gabapentin 100 Mg Cap 400 Mg PO BID Review of Systems Except as stated in HPI: all other systems reviewed are Neg Physical Exam Narrative GENERAL: Well-developed, well-nourished in no apparent distress. Nontoxic appearing. HEAD: Normocephalic, atraumatic. EYES: Pupils equal round and reactive. Extraocular motions intact. No scleral icterus. No injection or drainage. ENT: Nose clear. Throat without erythema, tonsillar hypertrophy or exudate. Uvula midline. Airway patent. NECK: Trachea midline. Supple, nontender, moves head freely. No central bony tenderness or spasm. CARDIOVASCULAR: Regular rate and rhythm without murmurs, gallops, or rubs. RESPIRATORY: Clear to auscultation. Breath sounds equal bilaterally. No wheezes , rales, or rhonchi. GASTROINTESTINAL: Abdomen soft, non-tender, nondistended. No hepato-splenomegaly , or palpable masses. No guarding. EXTREMITIES: No clubbing, cyanosis, or edema. No joint tenderness. BACK: Patient complains of diffuse pain in her thoracic and lumbar region. There is no point tenderness. She is able to heel and toe stand. She flexes forward to 70. No saddle anesthesia. Good strength. Without deformity. No flank tenderness. NEUROLOGICAL: Awake, alert and oriented x 3 .Cranial nerves grossly intact. Motor and sensory grossly within normal limits. Normal speech. Data Data Last Documented VS Vital Signs Date Time Temp Pulse Resp B/P Pulse Ox O2 Delivery O2 Flow Rate FiO2 03/10/17 18:36 99.1 82 17 124/72 98 MDM Medical Decision Making Medical Screen Exam Complete: Yes Emergency Medical Condition: Yes Medical Record Reviewed: Yes Differential Diagnosis MDM: High Differential diagnoses: AAA,Fracture, sprain, strain, HNP, nerve or vascular injury, epidural abscess, pilonidal cyst, pyelonephritis, UTI, nephrolithiasis, ureterolithiasis Narrative Course This is acute exacerbation of chronic back pain. Diagnosis Primary Impression: Acute exacerbation of chronic low back pain Patient Instructions: General Instructions Additional Instructions: Rest. Ice for the next 3 days followed by heat . Robaxin and Voltaren. Follow-up with a primary care doctor in one week. Return to the ER for emergencies. Med/Other Pt SpecificInfo: Prescription(s) given Scripts Methocarbamol (Robaxin)500 Mg [id number] Mg PO QID #40 TAB Prov:Mark Hines MD 03/10/[address] 75 Mg [id number] Mg PO BID #20 TAB Prov:Mark Hines MD 03/10/17 Disposition: 01 DISCHARGE HOME Condition: Stable Rene Allen Mar 10, 2017 19:18
== END 2017-03-10 19:47 | disposition home or self-care (01) ==
LOC: NEPD 18:34
DX: M54.5 Low back pain (principal); G89.29 Other chronic pain; R42 Dizziness and giddiness; J45.909 Unspecified asthma, uncomplicated; D64.9 Anemia, unspecified; M79.7 Fibromyalgia
CPT/HCPCS: 99284

== ENCOUNTER → 2017-06-27 | Outpatient (CLI) | payer OTHER ==
[~2017-06-27] MED LIST changes: +DICL75TA PO
--- NOTE | 2017-06-27 16:00 | EKG ---
Date Performed: 06/27/2017 Time Performed: 12:16:12 PTAGE: 41 years EKG: Sinus rhythm . Compared to prior tracing no significant change Normal ECG PREVIOUS TRACING : 12/31/2016 23.14 DOCTOR: Candido Stephens Interpretating Date/Time 06/27/2017 15:58:52
== END ==
LOC: HCAV 12:08
DX: F90.2 Attention-deficit hyperactivity disorder, combined type (principal)
CPT/HCPCS: 93005

== ENCOUNTER 2017-08-10 14:29 | Emergency (ER) | payer MEDICAID, OTHER ==
[~2017-08-10] VITALS: Ht 160 cm; Wt 70.0 kg
[~2017-08-10 14:29] MED LIST changes: -OMEP20TA PO; +OMEP20TA93 PO
[2017-08-10 14:30] VITALS: BP 133/91; PULSE 87; RESP 18; TEMP 98.3; O2SAT 99
[2017-08-10] MEDS ORDERED: DIAZEPAM 10 MG TAB PO ONE (16:00)
[2017-08-10] MEDS ORDERED: KETOROLAC TROMETHAMINE 60 MG/2 ML (IM) VIAL IM ONE (16:00)
[2017-08-10] MEDS ORDERED: ACETAMINOPHEN/HYDROcodone 325 MG/5 MG TAB PO ONE (16:45)
[2017-08-10] MEDS ORDERED: CYCL10TA PO (16:50)
--- NOTE | 2017-08-10 16:50 | PD ---
HPI Chief Complaint: Musculoskeletal Complaint Time Seen by Provider: 15:48 Travel History International Travel<30 days: No Contact w/Intl Traveler<30days: No Traveled to known affect area: No History of Present Illness HPI Patient is a 42-year-old female who comes in complaining of back pain. She is she has history of sciatica, and this pain is similar, but is much worse. She says the pain goes down her right leg, and this is more intense than usual. She took an ibuprofen 2 days ago, with no relief. She denies any urinary symptoms. She denies any numbness or tingling. She denies any injuries. She does say that her cousin was diagnosed with bone cancer recently and this has worried her. PFSH Past Medical History Anemia: Yes Asthma: Yes Anxiety: Yes Cancer: Yes (familial) Cardiovascular Problems: No Diminished Hearing: No Fibromyalgia: Yes Gastrointestinal Disorders: Yes Hepatitis: Yes Immune Disorder: No Implanted Vascular Access Dvce: No Musculoskeletal: Yes (fibromyalgia) Neurologic: Yes (vertigo) Psychiatric: Yes Reproductive: No Respiratory: Yes (asthma) Immunizations Current: Yes ?: Not Menopausal: Yes : 3 Para: 3 Tubal Ligation: Yes Past Surgical History Abdominal Surgery: Yes (GALLBLADDER REMOVAL) Cholecystectomy: Yes (10 YEARS AGO) Gynecologic Surgery: Yes (BREAST REDUCTION/LT BREAST CYST RESECTION) Other Surgery: Yes (LT. BREAST CYST RESECTION) Social History Alcohol Use: Yes (CASUAL) Tobacco Use: No Substance Use: No Allergies-Medications (Allergen,Severity, Reaction): Coded Allergies: prochlorperazine (Unverified Allergy, Severe, RESPIRATORY PROBLEMS, ) aspirin (Unverified Allergy, Intermediate, RASH, 05/03/17) latex (Unverified Allergy, Intermediate, rash, 05/03/17) piperacillin (Unverified Allergy, Intermediate, itching, 05/03/17) tazobactam (Unverified Allergy, Intermediate, itching, 05/03/17) diatrizoate meglumine (Unverified Allergy, Unknown, 05/03/17) gadobenic acid (Unverified Allergy, Unknown, 05/03/17) gadodiamide (Unverified Allergy, Unknown, 05/03/17) gadoteridol (Unverified Allergy, Unknown, 05/03/17) iodixanol (Unverified Allergy, Unknown, 05/03/17) iohexol (Unverified Allergy, Unknown, 05/03/17) oxycodone (Unverified Allergy, Unknown, HIVES,SWELLING, 05/03/17) Reported Meds & Prescriptions Reported Meds & Active Scripts Active Flexeril (Cyclobenzaprine HCl) 10 Mg Tab 10 Mg PO TID Zofran (Ondansetron HCl) 4 Mg Tab 4 Mg PO Q6HR PRN Hydrochlorothiazide 12.5 Mg Tab 12.5 Mg PO BID Meclizine (Meclizine HCl) 25 Mg Tab 25 Mg PO TID PRN Reported Omeprazole 20 Mg Tab 20 Mg PO DAILY Latuda (Lurasidone) 80 Mg Tab 80 Mg PO DAILY Proair Hfa 8.5 GM Inh (Albuterol Sulfate) 90 Mcg/Act Aer 2 Puff INH Q4-6H PRN 108 mcg/actuation Trazodone (Trazodone HCl) 50 Mg Tab 50 Mg PO HS Sertraline (Sertraline HCl) 100 Mg Tab 100 Mg PO DAILY Gabapentin 100 Mg Cap 400 Mg PO BID Review of Systems General / Constitutional: No: Fever, Chills HENT: No: Headaches, Lightheadedness Cardiovascular: No: Chest Pain or Discomfort Respiratory: No: Shortness of Breath Gastrointestinal: No: Nausea, Vomiting Genitourinary: No: Dysuria, Incontinence Musculoskeletal: Positive: Pain Skin: No Rash, No Change in Pigmentation Neurologic: No: Weakness, Incontinence, Sensory Disturbance Physical Exam Narrative GENERAL: Awake and alert, in no acute distress. SKIN: Focused skin assessment warm/dry. HEAD: Atraumatic. Normocephalic. EYES: Pupils equal and round. No scleral icterus. ENT: No nasal bleeding or discharge. Mucous membranes pink and moist. NECK: Trachea midline. No JVD. No cervical spine tenderness. CARDIOVASCULAR: Regular rate and rhythm. No murmur appreciated. RESPIRATORY: No accessory muscle use. Clear to auscultation. Breath sounds equal bilaterally. MUSCULOSKELETAL: No obvious deformities. No clubbing. No cyanosis. No edema. Tender to palpation of this right sacroiliac area. NEUROLOGICAL: Awake and alert. No obvious cranial nerve deficits. Motor grossly within normal limits. Normal speech. No saddle anesthesia. Data Data Last Documented VS Vital Signs Date Time Temp Pulse Resp B/P (MAP) Pulse Ox O2 Delivery O2 Flow Rate FiO2 08/10/17 14:30 98.3 87 18 133/91 (105) 99 Room Air Orders Orders Ketorolac Inj (Toradol Inj) (08/10/17 16:00) Diazepam (Valium) (08/10/17 16:00) Spine, Lumbar Comp W/Obliq (08/10/17 ) Acetamin-Hydrocod 325-5 Mg ([place] 5-325 (08/10/17 16:45) Ed Discharge Order (08/10/17 17:32) [facility] Medical Decision Making Medical Screen Exam Complete: Yes Emergency Medical Condition: Yes Medical Record Reviewed: Yes Differential Diagnosis Chronic pain versus sciatica versus injury Narrative Course Patient is a 42-year-old female comes in complaining of back pain. Exam shows tenderness to the right sacroiliac area. Patient given Toradol and Valium. She then advised me that she is worried because her cousin had bone cancer. X- ray ordered of the lumbar spine. This shows no acute abnormalities. Given a Lortab. She is advised follow-up with her primary doctor. Advised to return as needed for any worsening symptoms. Diagnosis Primary Impression: Sciatic leg pain Patient Instructions: General Instructions, Sciatica (ED) Additional Instructions: Follow-up with your primary care doctor. Take Tylenol or ibuprofen as needed for pain. He can take muscle relaxers as well. Return to the ED as needed for any worsening symptoms. Scripts Cyclobenzaprine (Flexeril) 10 Mg Tab 10 MG PO TID for Muscle Spasm, #15 TAB 0 Refills Prov: Rola Schuster MD 08/10/17 Disposition: 01 DISCHARGE HOME Condition: Stable Rola Schuster MD Aug 10, 2017 16:50
--- NOTE | 2017-08-10 17:28 | RADRPT ---
EXAM DATE/TIME: 08/10/2017 17:00 [facility] COMPARISON: No previous studies available for comparison. INDICATIONS : Lower back pain. MEDICAL HISTORY : None. SURGICAL HISTORY : Cholecystectomy. ENCOUNTER: Initial ACUITY: 3 days PAIN SCORE: 9/10 LOCATION: Lumbar. FINDINGS: A complete lumbar spine series shows no fracture or dislocation. Normal alignment. Disc space narrowi ng without osteophyte production at L5-S1. Remaining disc space heights are maintained. Facet joints are unremarkable. Cholecystectomy clips observed. CONCLUSION: 1. L5-S1 degenerative disc disease. No acute abnormality. Eduardo Irvin Jr., MD on August 10, 2017 at 17:24 Board Certified Radiologist. This report was verified electronically.
== END 2017-08-10 17:53 | disposition home or self-care (01) ==
LOC: NEPD 14:29
DX: M54.31 Sciatica, right side (principal)
CPT/HCPCS: 72110; 96372; 99284; J1885

== ENCOUNTER 2017-08-16 15:46 | Emergency (ER) | payer MEDICAID ==
[~2017-08-16 15:46] MED LIST changes: +CYCL10TA PO; -DICL75TA PO; -HYDR25TA35 PO; -MOTR200T4 PO; -ROBA500T PO
[2017-08-16 15:48] VITALS: BP 114/76; PULSE 84; RESP 17; TEMP 98.9; O2SAT 99
--- NOTE | 2017-08-16 16:52 | RADRPT ---
EXAM DATE/TIME: 08/16/2017 16:28 [facility] COMPARISON: CHEST SINGLE AP, December 31, 2016, 22:22. INDICATIONS : Pain and pressure in middle of the chest today. MEDICAL HISTORY : None. SURGICAL HISTORY : None. ENCOUNTER: Initial ACUITY: 1 day PAIN SCORE: 10/10 LOCATION: Bilateral chest FINDINGS: A single view of the chest demonstrates the lungs to be symmetrically aerated without evidence of mas s, infiltrate or effusion. The cardiomediastinal contours are unremarkable. Osseous structures are intact. CONCLUSION: No acute cardiopulmonary process. Dong Carpenter MD on August 16, 2017 at 16:48 Board Certified Radiologist. This report was verified electronically.
--- NOTE | 2017-08-16 16:54 | PD ---
HPI Chief Complaint: Cardiac Complaint Time Seen by Provider: 16:11 Travel History International Travel<30 days: No Contact w/Intl Traveler<30days: No Traveled to known affect area: No History of Present Illness HPI 42-year-old woman presents emergent department with palpitations. States symptoms started after she was in an elevator and it due to long to get to where is going in the elevator dropped and made a funny movement and she got anxious. Is been persistent since then. She does feel some shortness of breath. No pain. No history of DVT, she is not on any OCPs, no history of similar problems. She looks otherwise well. History Past Medical History Narrative Medical Asthma Menopausal: Yes : 3 Para: 3 Social History Alcohol Use: Yes (CASUAL) Tobacco Use: No Allergies-Medications (Allergen,Severity, Reaction): Coded Allergies: prochlorperazine (Unverified Allergy, Severe, RESPIRATORY PROBLEMS, ) aspirin (Unverified Allergy, Intermediate, RASH, 08/16/17) latex (Unverified Allergy, Intermediate, rash, 08/16/17) piperacillin (Unverified Allergy, Intermediate, itching, 08/16/17) tazobactam (Unverified Allergy, Intermediate, itching, 08/16/17) diatrizoate meglumine (Unverified Allergy, Unknown, 08/16/17) gadobenic acid (Unverified Allergy, Unknown, 08/16/17) gadodiamide (Unverified Allergy, Unknown, 08/16/17) gadoteridol (Unverified Allergy, Unknown, 08/16/17) iodixanol (Unverified Allergy, Unknown, 08/16/17) iohexol (Unverified Allergy, Unknown, 08/16/17) oxycodone (Unverified Allergy, Unknown, HIVES,SWELLING, 08/16/17) Reported Meds & Prescriptions Reported Meds & Active Scripts Active Flexeril (Cyclobenzaprine HCl) 10 Mg Tab 10 Mg PO TID Meclizine (Meclizine HCl) 25 Mg Tab 25 Mg PO TID PRN Reported Omeprazole 20 Mg Tab 20 Mg PO DAILY Latuda (Lurasidone) 80 Mg Tab 80 Mg PO DAILY Proair Hfa 8.5 GM Inh (Albuterol Sulfate) 90 Mcg/Act Aer 2 Puff INH Q4-6H PRN 108 mcg/actuation Trazodone (Trazodone HCl) 50 Mg Tab 50 Mg PO HS Sertraline (Sertraline HCl) 100 Mg Tab 100 Mg PO DAILY Review of Systems Except as stated in HPI: all other systems reviewed are Neg Physical Exam Narrative GENERAL: 42-year-old woman, no acute distress. SKIN: Focused skin assessment warm/dry. HEAD: Atraumatic. Normocephalic. CARDIOVASCULAR: Regular rate and rhythm. No murmur appreciated. RESPIRATORY: No accessory muscle use. Clear to auscultation. Breath sounds equal bilaterally. GASTROINTESTINAL: Abdomen soft, non-tender, nondistended. Hepatic and splenic margins not palpable. MUSCULOSKELETAL: No obvious deformities. No clubbing. No cyanosis. No edema. NEUROLOGICAL: Awake and alert. No obvious cranial nerve deficits. Motor grossly within normal limits. Normal speech. PSYCHIATRIC: Appropriate mood and affect; insight and judgment normal. Data Data Last Documented VS Vital Signs Date Time Temp Pulse Resp B/P (MAP) Pulse Ox O2 Delivery O2 Flow Rate FiO2 08/16/17 15:48 98.9 84 17 114/76 (89) 99 Room Air Orders Orders Electrocardiogram (08/16/17 15:54) Chest, Single Ap (08/16/17 ) [facility] Medical Decision Making Medical Screen Exam Complete: Yes Emergency Medical Condition: Yes Interpretation(s) My review of EKG: Normal sinus rhythm at a rate of 76, normal axis, normal vitals, no acute ischemia. My interpretation of chest x-ray: Unremarkable. Differential Diagnosis Palpitations, anxiety, ACS, PE, dissection, other Narrative Course Medical decision making INITIAL: Is a 42-year-old woman who presents to the emergency department complaining of palpitations short of breath this started after she was stuck in an elevator for short period time. She looks well. Recommend supportive treatment. No evidence of dissection. Diagnosis Primary Impression: Palpitations Additional Instructions: Drink plenty fluids stay well-hydrated. Follow-up with your primary doctor for any recurrent symptoms. Return to the emergency department for any worsening chest pain trouble breathing or any other new or worsening symptoms. Med/Other Pt SpecificInfo: No Change to Meds Disposition: 01 DISCHARGE HOME Condition: Stable Bob Watts MD Aug 16, 2017 16:54
--- NOTE | 2017-08-17 05:14 | EKG ---
Date Performed: 08/16/2017 Time Performed: 15:58:34 PTAGE: 42 years EKG: Sinus rhythm NORMAL ECG No significant change from prior electrocardiogram. PREVIOUS TRACING : 06/27/2017 12.16 DOCTOR: Andrzej Drummond Interpretating Date/Time 08/17/2017 05:14:41
== END 2017-08-16 17:50 | disposition home or self-care (01) ==
LOC: NEPD 15:46
DX: R00.2 Palpitations (principal)
CPT/HCPCS: 71010; 93005; 99284

== ENCOUNTER 2017-12-27 13:04 | Emergency (ER) | payer MEDICAID, OTHER ==
[~2017-12-27 13:04] MED LIST changes: -GABA100C4 PO; -HYDR12.56 PO; -ZOFR4TAB PO
[2017-12-27 13:22] VITALS: BP 120/79; PULSE 81; RESP 14; TEMP 98.3; O2SAT 97
--- NOTE | 2017-12-27 21:27 | PD ---
HPI Chief Complaint: Pain: Acute or Chronic Time Seen by Provider: 13:40 Travel History International Travel<30 days: No Contact w/Intl Traveler<30days: No History of Present Illness HPI 42-year-old female with PMH of fibromyalgia presents to the ED for evaluation of 3 day history of 10/10 whole body pain. Described as aching. No alleviating or exacerbating factors reported. Patient also reports dizziness and nausea. Denies headache, vision changes, dysuria, changes in bowel habits. Denies risk of , states early menopause, LMP 4 years ago. No treatment attempted at home. PFSH Past Medical History Anemia: Yes Asthma: Yes Anxiety: Yes Cancer: Yes (familial) Cardiovascular Problems: No Diminished Hearing: No Endocrine: No Fibromyalgia: Yes Gastrointestinal Disorders: Yes Hepatitis: Yes Immune Disorder: No Implanted Vascular Access Dvce: No Musculoskeletal: Yes (fibromyalgia) Neurologic: Yes (vertigo) Psychiatric: Yes Reproductive: No Respiratory: Yes (ASTHMA) Immunizations Current: Yes Menopausal: Yes : 3 Para: 3 Tubal Ligation: Yes Past Surgical History Abdominal Surgery: Yes (GALLBLADDER REMOVAL) Cholecystectomy: Yes (10 YEARS AGO) Gynecologic Surgery: Yes (BREAST REDUCTION/LT BREAST CYST RESECTION) Other Surgery: Yes (LT. BREAST CYST RESECTION) Social History Alcohol Use: Yes (CASUAL) Tobacco Use: No Substance Use: No Allergies-Medications (Allergen,Severity, Reaction): Coded Allergies: prochlorperazine (Unverified Allergy, Severe, RESPIRATORY PROBLEMS, ) aspirin (Unverified Allergy, Intermediate, RASH, 08/16/17) latex (Unverified Allergy, Intermediate, rash, 08/16/17) piperacillin (Unverified Allergy, Intermediate, itching, 08/16/17) tazobactam (Unverified Allergy, Intermediate, itching, 08/16/17) diatrizoate meglumine (Unverified Allergy, Unknown, 08/16/17) gadobenic acid (Unverified Allergy, Unknown, 08/16/17) gadodiamide (Unverified Allergy, Unknown, 08/16/17) gadoteridol (Unverified Allergy, Unknown, 08/16/17) iodixanol (Unverified Allergy, Unknown, 08/16/17) iohexol (Unverified Allergy, Unknown, 08/16/17) oxycodone (Unverified Allergy, Unknown, HIVES,SWELLING, 08/16/17) Reported Meds & Prescriptions Reported Meds & Active Scripts Active Flexeril (Cyclobenzaprine HCl) 10 Mg Tab 10 Mg PO TID Meclizine (Meclizine HCl) 25 Mg Tab 25 Mg PO TID PRN Reported Omeprazole 20 Mg Tab 20 Mg PO DAILY Latuda (Lurasidone) 80 Mg Tab 80 Mg PO DAILY Proair Hfa 8.5 GM Inh (Albuterol Sulfate) 90 Mcg/Act Aer 2 Puff INH Q4-6H PRN 108 mcg/actuation Trazodone (Trazodone HCl) 50 Mg Tab 50 Mg PO HS Sertraline (Sertraline HCl) 100 Mg Tab 100 Mg PO DAILY Review of Systems Except as stated in HPI: all other systems reviewed are Neg Physical Exam Narrative GENERAL: Well-nourished, well-developed female in no acute distress. SKIN: Focused skin assessment warm/dry. HEAD: Normocephalic. EYES: No scleral icterus. No injection or drainage. RESPIRATORY: No accessory muscle use. MUSCULOSKELETAL: No cyanosis, or edema. Walks with a normal gait. BACK: No obvious deformity. Data Data Last Documented VS Vital Signs Date Time Temp Pulse Resp B/P (MAP) Pulse Ox O2 Delivery O2 Flow Rate FiO2 12/27/17 13:22 98.3 81 14 120/79 (93) 97 MDM Medical Decision Making Medical Screen Exam Complete: Yes Emergency Medical Condition: Yes Differential Diagnosis Musculoskeletal pain versus UTI versus metabolic derangement versus other Narrative Course 42-year-old female with PMH of fibromyalgia presents to the ED for evaluation of 3 day history of worsening "all over" aching body pain. Also endorses nausea and dizziness. Vitals reviewed. Limited exam unremarkable. Patient was seen in the triage area. She is awaiting medical bed placement. Patient decided to leave without full evaluation. I explained the risks of leaving without full evaluation, patient indicated understanding of the risks. However, she still chose to leave AGAINST MEDICAL ADVICE. Diagnosis Primary Impression: Left against medical advice Ameena Lima Dec 27, 2017 21:27
== END 2017-12-27 13:49 | disposition left against medical advice (07) ==
LOC: NED 13:04
DX: R10.9 Unspecified abdominal pain (principal); R11.0 Nausea; R42 Dizziness and giddiness; M79.7 Fibromyalgia; D64.9 Anemia, unspecified; J45.909 Unspecified asthma, uncomplicated; F41.9 Anxiety disorder, unspecified; Z86.19 Personal history of other infectious and parasitic diseases; Z79.899 Other long term (current) drug therapy
CPT/HCPCS: 99281